=== PATIENT | male | born 1975 | race African-American/Black ===

== ENCOUNTER 2017-04-01 19:03 | Observation (INO) | payer BC ==
--- NOTE | ~2017-04-01 | HP ---
History And Physical [address] [id number] [facility] [place]. [address] NAME: MEL ALTMAN III : 75 STATUS : ADM Shelley PAT#: [id number] AGE: 41 ADM/REG DATE : 04/01/17 MR#: [id number] REPORT SERV DATE: 04/02/17 DICTATED BY: DATE: REPORT STATUS : Draft TRANSCRIBED BY: MODL DATE: 04/02/17 DATE OF ADMISSION: 04/01/2017 CHIEF COMPLAINT: Hypertension and chest pressure. HISTORY OF PRESENT ILLNESS: This is a very pleasant 41-year-old male without cardiac history, who noticed his blood pressure was elevated at 150s over 90s at home on Wednesday. His blood pressure, he reports normally is 120/80. Wednesday evening, he developed intermittent chest pressure and palpitations. He denies having any chest pain. He reports the pressure with a 1/10. He denies having any shortness of breath, nausea, vomiting, or diaphoresis during his event. He reports that the chest pressure resolved spontaneously. Currently, he has no complaints. He denies any chest pain or pressure, shortness of breath, nausea, vomiting, diaphoresis, or any palpitations. The patient denies any personal history of myocardial infarction, stroke, DVT, or pulmonary embolus. The patient denies any recent fever or chills. No palpitations. No syncopal episodes. Denies PND or orthopnea. PAST MEDICAL HISTORY: Hyperlipidemia. PAST SURGICAL HISTORY: He denies ever having any. SOCIAL HISTORY: He is a [employer] employee, who is and has two children. He works out three times a week and his workout regimen has not really changed since he has had the chest pressure or hypertension. He denies tobacco use. He drinks alcohol occasionally, socially. He denies any illicit drug use. FAMILY HISTORY: He denies any family history from his mother or his father. REVIEW OF SYSTEMS: A 14-point review of systems was performed significant for HPI, no other contributory diagnoses identified. ALLERGIES: NO KNOWN ALLERGIES. HOME MEDICATIONS: 1. Fish oil 1200 mg p.o. twice a day. 2. Pravachol 10 mg p.o. daily. PHYSICAL EXAMINATION: BP: 147/65; heart rate 65; RR: 13; Temp: 97.6; O2Sat: 99% on room air. GENERAL: Cooperative, in no apparent distress. HEENT: Head normocephalic, anicteric. Normal EOM. PERRLA. No xanthelasma. Nares patent. Moist mucous membranes. NECK: Trachea midline. No thyromegaly, JVD or bruits. RESPIRATORY: Clear to auscultation bilaterally anterior and posterior. Respirations even History And Physical [address] [place]. [address] NAME: MEL ALTMAN III : 75 STATUS : ADM Shelley PAT#: [id number] AGE: 41 ADM/REG DATE : 04/01/17 MR#: [id number] REPORT SERV DATE: 04/02/17 DICTATED BY: DATE: REPORT STATUS : Draft TRANSCRIBED BY: MODL DATE: 04/02/17 and unlabored. No wheezes, rhonchi or crackles. CARDIOVASCULAR: Regular rate and rhythm. No murmur, rub or gallop appreciated. No chest wall tenderness to palpation. ABDOMEN: Soft, nontender, nondistended, normal bowel sounds auscultated throughout. No masses or organomegaly. EXTREMITIES: No peripheral edema. DP/PT and radial pulses palpable bilaterally. No clubbing or cyanosis. SKIN: Warm, dry and intact. Normal turgor. No pallor or cyanosis. NEURO/PSYCH: Alert and oriented x3 with no acute distress. Affect appropriate to current situation. LABORATORY DATA: Troponin x3 is less than 0.02. Sodium 140, potassium 3.7, BUN 15, creatinine 1.48, GFR of 67, glucose 107, calcium 9.5, and magnesium 2.3. White blood cells 7.9, hemoglobin 15.0, hematocrit 42.2, and platelets 234. INR 1.0. DIAGNOSTIC STUDIES: 1. EKG shows sinus rhythm with anterolateral T-wave inversions. Borderline criteria for LVH. cafeteria monitor shows sinus caitlin at 58 to sinus rhythm in the 60s. No ectopy. No arrhythmias noted. 2. Chest x-ray shows normal single view chest x-ray. The heart is normal in size and shape. The pulmonary vessels are normal. The lungs are clear. ASSESSMENT AND PLAN: 1. Chest pressure. The patient reports the chest pressure occurred at rest, now resolved. He denies ever having any chest pain. His troponins x3 have been negative. We have noted a questionable LVH on his EKG. His cardiac risk factors are hyperlipidemia and hypertension. We will keep the patient n.p.o. and we will schedule an MPI today. If the stress test shows low risk or no ischemia, the patient can be discharged home. 2. Hyperlipidemia. He is already on pravastatin. 3. Renal insufficiency. The patient does report to have increased creatinine per PCP. I do not have those records. Creatinine is 1.48 today. I will defer management of his renal function to his PCP, Dr. Javier. 4. Abnormal EKG. Questionable LVH by EKG with repolarization abnormalities. The EKG was discussed with Dr. Martins, who looked at his EKG, and they will order an echo. His discharge will be tentative based on the results of that as well. If the patient's stress test is suggestive of any ischemia, Cardiology referral will be initiated. EKS/MODL Sarina Lund APN / [id number] CC: History And Physical [address] [address] NAME: MEL ALTMAN III : 75 STATUS : ADM Shelley PAT#: [id number] AGE: 41 ADM/REG DATE : 04/01/17 MR#: [id number] REPORT SERV DATE: 04/02/17 DICTATED BY: DATE: REPORT STATUS : Draft TRANSCRIBED BY: MODL DATE: 04/02/17 Gregoria Pedraza, MSN, CLOSING MANAGER-BC Sabine Javier M.D.
[2017-04-01 19:32] LABS: BASOPHILS 0.4 %; BASOPHILS ABSOLUTE 0.03 10/3/uL (0.0-0.16); EOSINOPHILS 3.3 %; EOSINOPHILS ABSOLUTE 0.26 10/3/uL (0.0-0.53); ER CBC TAT 0 Hrs 10 Mins; HEMATOCRIT 42.2 % (40.0-51.0); IMMATURE GRANULOCYTES 0.1 %; IMMATURE GRANULOCYTES ABSOLUTE 0.01 10/3/uL (0.0-0.11); LYMPHOCYTES 26.7 %; LYMPHOCYTES ABSOLUTE 2.11 10/3/uL (0.67-4.30); MEAN CORPUS HGB CONC 35.5 g/dL (32.0-36.0); MEAN CORPUSCULAR HEMOGLOB 28.6 pg (26.0-34.0); MEAN CORPUSCULAR VOLUME 80.4 fL (80-100); MEAN PLATELET VOLUME 9.9 fL (9.2-13.0); MONOCYTES 5.6 %; MONOCYTES ABSOLUTE 0.44 10/3/uL (0.21-1.20); NEUTROPHILS 63.9 %; NEUTROPHILS ABSOLUTE 5.04 10/3/uL (2.02-8.40); PLATELET COUNT 234 10/3/uL (150-400); RBC DISTRIBUTION WIDTH 13.6 % (12.0-16.0); RED CELL COUNT 5.25 10/6/uL (4.7-6.1); WHITE BLOOD CELLS 7.9 10/3/uL (4.5-10.5)
[2017-04-01 19:34] LABS: MANUAL DIFF NO %
[2017-04-01 19:43] LABS: BUN (BLOOD UREA NITROGEN) 15 MG/DL (6-23); CALCIUM, SERUM 9.5 MG/DL (8.5-10.4); CHEST PAIN PROFILE TAT 0 Hrs 21 Mins; CHLORIDE, SERUM 104 MMOL/L (96-112); CO2 (CARBON DIOXIDE) 34 MMOL/L (24-34); CREATININE 1.48 MG/DL (0.70-1.30); GFR AFRICAN AMERICAN 67 ML/MIN (>=60); GFR NON AFRICAN AMERICAN 58 ML/MIN (>=60); GLUCOSE, SERUM 107 MG/DL (60-99); PARTIAL THROMBO TIME 34.5 SEC (22.5-37.2); POTASSIUM, SERUM 3.7 MMOL/L (3.5-5.3); PROTIME (NOT ORD) 13.4 SEC (12.0-14.5); SODIUM, SERUM 140 MMOL/L (135-148); TROPONIN I <0.02 NG/ML (<0.05)
[2017-04-01] MEDS ORDERED: MULTIVIT/MIN PO (20:28)
[2017-04-01] MEDS ORDERED: FISH OIL1200 MG PO (20:28)
[2017-04-01] MEDS ORDERED: PRAV10 PO (20:29)
[2017-04-02] MEDS ORDERED: NORV5 PO (16:33)
== END 2017-04-02 17:15 | disposition home or self-care (01) ==
LOC: ER 19:03 → CDU1 23:01 → CDU2 23:04
PROVIDERS: Emergency Medicine
DX: R07.89 Other chest pain (principal); E78.5 Hyperlipidemia, unspecified; N28.9 Disorder of kidney and ureter, unspecified
CPT/HCPCS: 71010; 78452; 80048; 83735; 84484; 85025; 85610; 85730; 93005; 93017; 93306; 99285; A9270-GY; A9502; G0378